=== PATIENT | female | born 1950 | race Caucasian/White ===

== ENCOUNTER → 2017-06-23 | Outpatient (CLI) | payer OTHER | LOC: CIMAGING 15:20 | PROVIDERS: ATTEND Family Medicine | DX: J18.9 Pneumonia, unspecified organism (principal) | CPT/HCPCS: 71046-PO ==

== ENCOUNTER 2017-12-01 20:56 | Emergency (ER) | payer OTHER ==
[2017-12-01 21:15] VITALS: BP 140/78
[2017-12-01] MEDS ORDERED: NITROFURANTOIN 100MG PREPACK#2 BTL TAKEHOME ONE (21:25)
--- NOTE | 2017-12-01 21:26 | EDPHY ---
H & P Stated Complaint: hematuria started xerelto 1 week ago Time Seen by Provider: 12/01/17 21:03 HPI/ROS: Chief Complaint: Hematuria HPI: 67-year-old woman presenting with hematuria that she noticed tonight. She has got some mild lower abdominal discomfort. She was started on Xarelto week ago after a diagnosis of a DVT. No fevers or chills. No back pain. Does not have a history of UTIs in the past. No nausea or vomiting. No vaginal bleeding or discharge. No lightheadedness or fainting. ROS: 10 point Review of Systems is negative except as noted in the HPI. PMH: DVT, diabetes Social History: No smoking, no alcohol, no recreational drug use Family History: non-contributory Physical Exam: Gen: Awake, Alert, No Distress HEENT: Nose: no rhinorrhea Eyes: PERRLA, EOMI Mouth: Moist mucosa Neck: Supple, no JVD Chest: nontender, lungs clear to auscultation Heart: S1, S2 normal, no murmur Abd: Soft, non-tender, no guarding Back: no CVA tenderness, no midline tenderness Ext: no edema, non-tender Skin: no rash Neuro: CN II-XII intact, Sensation grossly intact, Strength 5/5 in bilateral upper and lower extremities - Personal History Current Tetanus/Diphtheria Vaccine: Unsure Current Tetanus Diphtheria and Acellular Pertussis (TDAP): Unsure - Medical/Surgical History Hx Asthma: Yes Hx Chronic Respiratory Disease: No Hx Diabetes: Yes Hx Cardiac Disease: No Hx Renal Disease: No Hx Cirrhosis: No Hx Alcoholism: No Hx HIV/AIDS: No Hx Splenectomy or Spleen Trauma: No Other PMH: DVT. back surgery. DM. Ortho sx, - Social History Smoking Status: Never smoked Constitutional: Initial Vital Signs Temperature (C) 37.8 C 12/01/17 21:03 Heart Rate 92 12/01/17 21:03 Respiratory Rate 18 12/01/17 21:03 Blood Pressure 140/78 H 12/01/17 21:03 O2 Sat (%) 92 12/01/17 21:03 O2 Delivery Mode Room Air Allergies/Adverse Reactions: prochlorperazine [From Compazine] Allergy (Verified 11/21/17 21:36) Home Medications: Medication Instructions Recorded Metformin HCl 11/21/17 traZODone 11/21/17 Nitrofurantoin Monohyd/M-Cryst 100 mg PO BID #8 capsule 12/01/17 [Macrobid 100 mg Capsule] Xarelto 12/01/17 Medical Decision Making ED Course/Re-evaluation: 67-year-old woman with hematuria. She has 3+ blood and leuk esterase on her urinalysis consistent with UT I. Will start her on nitrofurantoin. Will discharge with follow-up with primary care physician, return for any concerns. Departure - Departure Disposition: Home, Routine, Self-Care Clinical Impression: Urinary tract infection Condition: Good Instructions: Urinary Tract Infection in Women (ED) Additional Instructions: Please take her full course of antibiotics. Follow up with your primary care physician in 3-4 days if symptoms are not improving. Return to the emergency department for increasing blood in your urine, lightheadedness, fainting, abdominal pain, or any other concerns. Referrals: Suzie Montenegro MD [Primary Care Provider] - As per Instructions Prescriptions: Nitrofurantoin Monohyd/M-Cryst [Macrobid 100 mg Capsule] 100 mg PO BID #8 capsule
== END 2017-12-01 21:37 | disposition home or self-care (01) ==
LOC: CED 20:56
DX: N39.0 Urinary tract infection, site not specified (principal)

== ENCOUNTER 2018-04-01 15:44 | Emergency (ER) | payer OTHER ==
--- NOTE | 2018-04-01 17:13 | EDPHY ---
H & P Stated Complaint: States home pulse ox low;sent for eval by PCP;L knee surg yesterday - Personal History Current Tetanus Diphtheria and Acellular Pertussis (TDAP): Yes - Medical/Surgical History Hx Asthma: Yes Hx Chronic Respiratory Disease: No Hx Diabetes: Yes Hx Cardiac Disease: No Hx Renal Disease: No Hx Cirrhosis: No Hx Alcoholism: No Hx HIV/AIDS: No Hx Splenectomy or Spleen Trauma: No Other PMH: DVT. back surgery. DM. Ortho sx - Social History Smoking Status: Never smoked Time Seen by Provider: 04/01/18 17:13 HPI/ROS: Chief complaint: Hypoxia History of present illness: This is a 67-year-old female sent to the emergency department by her orthopedic group for hypoxia. Patient underwent a left knee meniscal repair yesterday. The repair appeared to go well. She was feeling well besides some knee pain. Today she was checking her vital signs at home and noted that her pulse oximetry was low, it got as low as 80%. She talked with her orthopedic group and was sent here for further evaluation and care. She does have a recent history of DVT that was treated with the Xarelto. The Xarelto had been stopped for the surgery and then restarted this morning. She denies any fevers or cold symptoms, she denies cough, trouble breathing or chest pain. She has a history of mild asthma, she does not feel like she is having any problems with it at this time. There is pain in her left knee at the site of surgery otherwise she feels well. Review of systems: 10 point review of systems was obtained and other than described above was negative (Heath Bailey) - Physical Exam Exam: General Appearance: Alert, nontoxic. Eyes: Pupils equal and round no pallor or injection. ENT, Mouth: Mucous membranes moist. Respiratory: Globally diminished, although this is somewhat due to body habitus , I do not hear adventitious breath sounds such as rales, rhonchi or wheezing. Cardiovascular: Regular rate and rhythm. Gastrointestinal: Abdomen is soft and non tender, no masses, bowel sounds normal. Neurological: Alert and oriented x4. Skin: Warm and dry, no rashes. Musculoskeletal: Neck is supple non tender. Extremities are symmetrical, full range of motion. Psychiatric: Patient is oriented X 3, there is no agitation. (Heath Bailey) Constitutional: Initial Vital Signs Temperature (C) 36.9 C 04/01/18 15:45 Heart Rate 72 04/01/18 15:45 Respiratory Rate 18 04/01/18 15:45 Blood Pressure 107/49 L 04/01/18 15:45 O2 Sat (%) 90 L 04/01/18 15:45 O2 Delivery Mode Room Air O2 (L/minute) 2 Allergies/Adverse Reactions: prochlorperazine [From Compazine] Allergy (Verified 04/01/18 15:58) Home Medications: Medication Instructions Recorded metFORMIN HCL [Metformin HCl] 500 mg PO BID 11/21/17 traZODone [traZODONE 50MG (*)] 50 mg PO HS 11/21/17 Rivaroxaban [Xarelto 10mg (*)] 10 mg PO DAILY 12/01/17 Herbals/Supplements -Info Only 1 ea PO DAILY 04/01/18 Acworth-3 Fatty Acids [Fish Oil 1000 1,000 mg PO DAILY 04/01/18 mg (*)] oxyCODONE IR [Oxycodone Ir (*)] 5 mg PO Q4 PRN 04/01/18 Medical Decision Making ED Course/Re-evaluation: Patient was initially seen under the supervision of my secondary supervising physician Dr. Jama Rowe. Patient presented to the emergency department for hypoxia after a knee surgery yesterday. Upon signing up for this patient I went in to evaluate her. We did appear to have difficulty communicating from the start. Upon starting to take a history from the patient her interrupted on multiple occasions stating that the orthopedic PA had called down to arrange everything. I did inform the patient and her that we needed to do our own evaluation. The did appear to be upset with the fact that I performed my own history and physical exam. Unfortunately the patient turned out to have very difficult to IV access. Multiple staff memebers attempted IV access both to obtain blood studies and get IV access. At the same time the emergency department was extremely busy. Upon re- evaluation of the patient while still trying to get blood studies the patient's became more upset. He was extremely belligerent with me. He demanded to see my attending physician. At one point I had to consider getting security involved. I had consulted with my attending physician Dr. Jama Rowe at the beginning of evaluating this patient on patient's history, physical exam and my plan of care. After communication broke down with patient and her I informed my attending physician Dr. Jama Rowe. At this point care of the patient was turned over to Dr. Jama Rowe to deescalate the situation and facilitate care for the patient. (LeoHeath) 2015: Patient here in emergency room shortness of breath. Recently had left knee surgery. Patient has a room air saturation of 80% at home for the patient. 87% here. Patient denies any chest pain, denies any wheezing, denies productive cough, denies fever. No pleuritic pain. She does have a history of DVTs. On Xarelto. Plan for work up for hypoxia after surgery is toworkup for PE, and further evaluation for hypoxia. Plan for this patient basic blood work, EKG, troponin, D-dimer. May need to perform a CT angiogram of the chest pending DDIMER, However noted she is on Xarelto. Patient's D-dimer is noted be negative. Due to the hypoxia room air saturation was tested again 85%. On Road Test Sat at 85%. Patient received breathing treatment here. She States not much improvement. 85 % room air sat. 2226: Patient is requesting to leave AMA. She understands that she should be admitted for hypoxia, and further monitoring. Also CT results not back yet. She does not want to wait for results, and wants to leave. I did recommend to the patient as well as her at bedside that she stays in the hospital due to hypoxia. Her room air saturation is 85%. Her workup is not complete. I recommend she gets admitted for supplemental oxygen, further evaluation however she has declined this. She is refusing to stay in the hospital. Patient understands the risk of leaving against medical advice. Patient understands by leaving against medical advice this can lead to great morbidity, mortality, , neurological dysfunction. I did highly recommend to the patient multiple times including the at bedside the patient be admitted for hypoxia. at 85% room air sat. I explained to them that she should be admitted with supplemental oxygen, and further evaluation. The patient is pending CT results and blood work. They are declining this, they refusing hospital admission. They understand the risk of doing so. Understand leaving against medical advice. 2245: Nursing staff notify me the patient refusing to sign AMA paperwork. However they do understand the risk of leaving against my advice. (Jama Rowe) Differential Diagnosis: Included but was limited to PE, pulmonary infections, pneumothorax, asthma exacerbation, respiratory suppression narcotics unlikely ACS or cardiac dysrhythmia (Heath Bailey) - Data Points Laboratory Results: Laboratory Results 04/01/18 21:25 04/01/18 19:40 Medications Given: Discontinued Medications Albuterol/Ipratropium (Duoneb) 3 ml IH EDNOW ONE Stop: 04/01/18 20:22 Last Admin: 04/01/18 20:33 Dose: 3 ml Sodium Chloride (Ns) 1,000 mls @ 0 mls/hr IV ONCE ONE PRN Reason: Wide Open Stop: 04/01/18 20:18 Last Admin: 04/01/18 20:34 Dose: 1,000 mls Oxycodone HCl (Oxycodone Ir) 5 mg PO EDNOW ONE Stop: 04/01/18 18:25 Last Admin: 04/01/18 18:34 Dose: 5 mg Oxycodone HCl (Oxycodone Ir) 5 mg PO EDNOW ONE Stop: 04/01/18 21:33 Last Admin: 04/01/18 21:44 Dose: 5 mg Point of Care Test Results: Chemistry 04/01/18 19:58 POC Troponin I 0.00 ng/mL ng/mL (0.00-0.08) Departure - Departure Disposition: Against Medical Advice Clinical Impression: Hypoxia Condition: Serious Instructions: Against Medical Advice (ED), Hypoxia (ED) Additional Instructions: 1. Return to the emergency room if you change of mind about being admitted. 2. If you have worsening trouble breathing, discomfort, not doing well return immediately. Referrals: NONE *PRIMARY CARE P,. [Primary Care Provider] - As per Instructions
[2018-04-01] MEDS ORDERED: oxyCODONE IR 5 MG TAB PO ONE ×2 (18:24→21:32)
[2018-04-01] MEDS ORDERED: NS 1,000 ML IV ONE (20:17)
[2018-04-01] MEDS ORDERED: IPRATROPIUM/ALBUTEROL 3 ML DEYVIAL IH ONE (20:21)
[2018-04-02 05:04] VITALS: BP 110/65
--- NOTE | 2018-04-04 06:28 | CPEKG ---
Test Reason : OPEN Blood Pressure : / mmHG Vent. Rate : 073 BPM Atrial Rate : 073 BPM P-R Int : 146 ms QRS Dur : 101 ms QT Int : 377 ms P-R-T Axes : 075 -35 060 degrees QTc Int : 416 ms Sinus rhythm Left axis deviation Confirmed by Jama Rowe ([id number]) on 04/04/2018 6:27:31 AM Referred By: Confirmed By:Jama Rowe
== END 2018-04-01 22:45 | disposition left against medical advice (07) ==
DX: R09.02 Hypoxemia (principal); J45.909 Unspecified asthma, uncomplicated; E11.9 Type 2 diabetes mellitus without complications; Z79.01 Long term (current) use of anticoagulants; Z86.718 Personal history of other venous thrombosis and embolism; Z98.890 Other specified postprocedural states
CPT/HCPCS: 84484-ER